=== PATIENT | male | born 1985 | race American Indian/Alaskan Native ===

== ENCOUNTER 2017-11-29 17:09 | Emergency (ER) | payer BC ==
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
[2017-11-29] MEDS ORDERED: ZITHROMAX PO ONE (21:59)
[2017-11-29] MEDS ORDERED: CATAPRES PO ONE (21:59)
[2017-11-29] MEDS ORDERED: ROCEPHIN IM ONE (21:59)
[2017-11-29] MEDS ORDERED: XYLOCAINE 1% MPF 5 mL INFILTRATI ONE (21:59)
[2017-11-29] MEDS ORDERED: FLAGYL PO ONE (21:59)
[2017-11-29 22:59] VITALS: BP 191/124
[2017-11-29] MEDS ORDERED: APRESOLINE IV ONE (23:13)
== END 2017-11-30 01:56 | disposition left against medical advice (07) ==
LOC: ED 17:09
DX: I16.9 Hypertensive crisis, unspecified (principal); I10 Essential (primary) hypertension
CPT/HCPCS: 93005; 93010; 96372; 99283; J0696

== ENCOUNTER 2019-04-08 23:57 | Emergency (ER) | payer OTHER ==
[2019-04-09 00:52] VITALS: BP 171/101
--- NOTE | 2019-04-09 00:58 | XRay Report ---
PROCEDURE: XR TOE(S) 2+V LT TECHNIQUE: First toe radiographs, including AP, oblique and lateral views. HISTORY: pain and swelling COMPARISONS: None . FINDINGS: Fracture (s) and/or Dislocation(s): None . Joint space(s): Normal . Soft tissues: There is soft tissue swelling of the first digit. . Bone mineralization: Normal . Foreign bodies: None . IMPRESSION: There is no fracture or malalignment. There is soft tissue swelling of the first digit. . This document is electronically signed by Jf Chilel MD., Apr 09 2019 12:56:15 AM ET
[2019-04-09] MEDS ORDERED: NORCO 5/325 PO ONE (05:23)
[2019-04-09] MEDS ORDERED: NORCO 5/325 ONE (05:27)
--- NOTE | 2019-04-09 05:31 | Emergency Department Report ---
ED Lower Extremity HPI - General Chief Complaint: Extremity Injury, Lower Stated Complaint: RT BIG TOE PAIN Time Seen by Provider: 04/09/19 05:00 Source: patient Mode of arrival: Ambulatory Limitations: No Limitations - History of Present Illness Initial Comments: There is 3-year-old female who presents for right ear pain status post striking toe on floor at home pt denies bleeding or open wound pain is 9/10 well as a resulclenad tomorrow MD Complaint: other (right great toe pain ) -: Sudden, This afternoon Injury: Toes: Right (right great towo general he is saying seen obstruction by granulation discharging an option and pain there was insufficient evidence of his physician is present and instruction [id number]) Place: home Severity: moderate Severity scale (0 -10): 4 Improves With: nothing Worsens With: weight bearing, palpation Associated Symptoms: snap/pop sensation, ambulatory - Related Data Previous Rx's Medication Instructions Recorded Last Taken Type Ibuprofen [Motrin 800 MG tab] 800 mg PO Q8HR PRN #30 tablet 04/09/19 Unknown Rx Allergies Allergy/AdvReac Type Severity Reaction Status Date / Time No Known Allergies Allergy Verified 11/29/17 22:17 ED Review of Systems ROS: Stated complaint: RT BIG TOE PAIN Other details as noted in HPI Constitutional: denies: chills, fever Eyes: denies: eye pain, eye discharge, vision change ENT: denies: ear pain, throat pain Respiratory: denies: cough, shortness of breath, wheezing Cardiovascular: denies: chest pain, palpitations Endocrine: no symptoms reported Gastrointestinal: denies: abdominal pain, nausea, diarrhea Genitourinary: denies: urgency, dysuria Musculoskeletal: back pain. denies: joint swelling, arthralgia, myalgia Skin: denies: rash, lesions Neurological: as per HPI Psychiatric: denies: anxiety, depression Hematological/Lymphatic: denies: easy bleeding, easy bruising ED Past Medical Hx - Social History Smoking Status: Never Smoker Substance Use Type: None - Medications Home Medications: Home Medications Medication Instructions Recorded Confirmed Last Taken Type Ibuprofen [Motrin 800 MG tab] 800 mg PO Q8HR PRN #30 tablet 04/09/19 Unknown Rx ED Physical Exam - General Limitations: No Limitations General appearance: alert, in no apparent distress - Head Head exam: Present: atraumatic, normocephalic - Eye Eye exam: Present: normal appearance - ENT ENT exam: Present: mucous membranes moist - Neck Neck exam: Present: normal inspection - Respiratory Respiratory exam: Present: normal lung sounds bilaterally. Absent: respiratory distress - Cardiovascular Cardiovascular Exam: Present: regular rate, normal rhythm. Absent: systolic murmur, diastolic murmur, rubs, gallop - GI/Abdominal GI/Abdominal exam: Present: soft, normal bowel sounds - Rectal Rectal exam: Present: deferred - exam: Present: normal inspection - Extremities Exam Extremities exam: Present: normal inspection - Back Exam Back exam: Present: normal inspection - Neurological Exam Neurological exam: Present: alert, oriented X3, CN II-XII intact, normal gait, reflexes normal - Psychiatric Psychiatric exam: Present: normal affect, normal mood - Skin Skin exam: Present: warm, dry, intact, normal color. Absent: rash ED Course Vital Signs 04/09/19 00:05 Temperature 98.0 F Pulse Rate 105 H Respiratory 20 Rate Blood Pressure 171/101 O2 Sat by Pulse 100 Oximetry ED Lower Extremity MDM - EKG Data -: EKG Interpreted by Me Critical care attestation.: If time is entered above; I have spent that time in minutes in the direct care of this critically ill patient, excluding procedure time. ED Disposition Clinical Impression: Toe sprain Qualifiers: Encounter type: initial encounter Qualified Code(s): S93.509A - Unspecified sprain of unspecified toe(s), initial encounter Disposition: TO HOME OR SELFCARE Is pt being admited?: No Does the pt Need Aspirin: No Condition: Stable Instructions: Foot Sprain (ED) Prescriptions: Ibuprofen [Motrin 800 MG tab] 800 mg PO Q8HR PRN #30 tablet PRN Reason: pain Referrals: LEONIDES ALVARADO MD [Primary Care Provider] - 3-5 Days Forms: Work/School Release Form(ED) Time of Disposition: 06:18
== END 2019-04-09 06:30 | disposition home or self-care (01) ==
LOC: ED 23:57
DX: S93.501A Unspecified sprain of right great toe, initial encounter (principal); W22.09XA Striking against other stationary object, initial encounter; Y93.89 Activity, other specified; Y92.89 Other specified places as the place of occurrence of the external cause; Y99.8 Other external cause status
CPT/HCPCS: 99283

== ENCOUNTER 2020-11-17 16:39 | Emergency (ER) | payer OTHER ==
[2020-11-17 17:11] VITALS: BP 144/97
--- NOTE | 2020-11-17 17:20 | Emergency Department Report ---
ED General Adult HPI - General Chief complaint: Extremity Injury, Lower Stated complaint: LT FOOT SWOLLEN Time Seen by Provider: 11/17/20 17:11 Source: patient Mode of arrival: Ambulatory Limitations: No Limitations - History of Present Illness Initial comments: Patient is a 34-year-old male who presents emergency room complaints of left big toe pain and swelling that began 3 days ago. He denies any fall or injury or anything hitting the toe. He states he has increased pain with movement. He denies any numbness or weakness and is ambulatory. He denies any fever, vomiting, diarrhea, chills. He states that he does drink beer and eats heavy meats. He denies any past medical history. No allergies to medications. He states he had similar symptoms in 2019 and was advised that he may possibly have gout but he never followed up after. - Related Data Previous Rx's Medication Instructions Recorded Last Taken Type Ibuprofen [Motrin 800 MG tab] 800 mg PO Q8HR PRN #30 tablet 04/09/19 Unknown Rx Colchicine 0.6 mg PO ONCE 1 Days #3 tablet 11/17/20 Unknown Rx Indomethacin 50 mg PO Q8H 7 Days #21 capsule 11/17/20 Unknown Rx Prednisone [predniSONE 10 mg 10 mg PO .TAPER #1 tab.ds.pk 11/17/20 Unknown Rx (6-Day Pack, 21 Tabs)] Allergies Allergy/AdvReac Type Severity Reaction Status Date / Time No Known Allergies Allergy Verified 11/17/20 17:08 ED Review of Systems ROS: Stated complaint: LT FOOT SWOLLEN Other details as noted in HPI Comment: All other systems reviewed and negative ED Past Medical Hx - Past Medical History Hx Hypertension: Yes - Surgical History Past Surgical History?: No - Social History Smoking Status: Never Smoker Substance Use Type: None - Medications Home Medications: Home Medications Medication Instructions Recorded Confirmed Last Taken Type Ibuprofen [Motrin 800 MG tab] 800 mg PO Q8HR PRN #30 tablet 04/09/19 Unknown Rx Colchicine 0.6 mg PO ONCE 1 Days #3 tablet 11/17/20 Unknown Rx Indomethacin 50 mg PO Q8H 7 Days #21 capsule 11/17/20 Unknown Rx Prednisone [predniSONE 10 mg 10 mg PO .TAPER #1 tab.ds.pk 11/17/20 Unknown Rx (6-Day Pack, 21 Tabs)] ED Physical Exam - General Limitations: No Limitations General appearance: alert, in no apparent distress - Head Head exam: Present: atraumatic, normocephalic - Eye Eye exam: Present: normal appearance - ENT ENT exam: Present: mucous membranes moist - Respiratory Respiratory exam: Absent: respiratory distress, accessory muscle use - Extremities Exam Extremities exam: Present: other (ttp and edema present to the left 1st toe, there is mild increased warmth, no erythema or skin changes, FROM of the LLE, no ttp or edema to the RLE, FROM of the RLE, neurovascularly intact throughout) - Neurological Exam Neurological exam: Present: alert, oriented X3 - Psychiatric Psychiatric exam: Present: normal affect, normal mood - Skin Skin exam: Present: warm, dry, intact ED Course Vital Signs 11/17/20 17:10 Temperature 98.3 F Pulse Rate 92 H Respiratory 18 Rate Blood Pressure 144/97 O2 Sat by Pulse 100 Oximetry ED Medical Decision Making - Medical Decision Making Patient is a 34-year-old male who presents emergency room complaints of left big toe pain and swelling that began 3 days ago. He denies any fall or injury or anything hitting the toe. He states he has increased pain with movement. He denies any numbness or weakness and is ambulatory. He denies any fever, vomiting, diarrhea, chills. He states that he does drink beer and eats heavy meats. He denies any past medical history. No allergies to medications. He states he had similar symptoms in 2019 and was advised that he may possibly have gout but he never followed up after. VSS. on exam: ttp and edema present to the left 1st toe, there is mild increased warmth, no erythema or skin changes, FROM of the LLE, no ttp or edema to the RLE, FROM of the RLE, neurovascularly intact throughout. Examination consistent with acute gout flare. No signs of septic joint or DVT at this time. Patient has had no traumatic injury. Patient given prescription for prednisone, indomethacin, colchicine. Advised patient Please take medication as prescribed. Follow-up with your primary care doctor. Follow-up with a auto tech. Return to emergency room for any worsening sym ptoms. Critical care attestation.: If time is entered above; I have spent that time in minutes in the direct care of this critically ill patient, excluding procedure time. ED Disposition Clinical Impression: Podagra Acute gout Qualifiers: Gout site: toe Gout etiology: unspecified cause Laterality: left Qualified Code(s): M10.9 - Gout, unspecified Disposition: TO HOME OR SELFCARE Is pt being admited?: No Does the pt Need Aspirin: No Condition: Stable Instructions: Low-Purine Eating Plan Additional Instructions: Please take medication as prescribed. Follow-up with your primary care doctor. Follow-up with a auto tech. Return to emergency room for any worsening symptoms. Prescriptions: Colchicine 0.6 mg PO ONCE 1 Days #3 tablet Indomethacin 50 mg PO Q8H 7 Days #21 capsule Prednisone [predniSONE 10 mg (6-Day Pack, 21 Tabs)] 10 mg PO .TAPER #1 tab.ds.pk Referrals: ALY DYE MD [Staff Physician] - 3-5 Days [facility] [Provider Group] - 3-5 Days WILFREDO SELLERS DPM [Staff Physician] - 3-5 Days Forms: Work/School Release Form(ED) Time of Disposition: 17:22 Print Language: MACEDONIAN
== END 2020-11-17 17:39 | disposition home or self-care (01) ==
LOC: ED 16:39
DX: M10.9 Gout, unspecified (principal); I10 Essential (primary) hypertension; Z79.1 Long term (current) use of non-steroidal anti-inflammatories (NSAID); Z79.899 Other long term (current) drug therapy
CPT/HCPCS: 99282

== ENCOUNTER 2021-04-29 02:32 | Emergency (ER) | payer OTHER ==
[2021-04-29] MEDS ORDERED: ACETAMINOPHEN 325 MG TAB ONE (05:24)
[2021-04-29] MEDS ORDERED: ACETAMINOPHEN 325 MG TAB PO ONE (05:25)
[2021-04-29] MEDS ORDERED: MORPHINE 4 MG/1 ML INJ IM STA (06:13)
[2021-04-29 06:36] VITALS: BP 180/111
--- NOTE | 2021-04-29 07:02 | Emergency Department Report ---
ED Lower Extremity HPI - General Chief Complaint: Extremity Injury, Lower Stated Complaint: LT FOOT SWELLING/PAINFUL Time Seen by Provider: 04/29/21 06:57 Source: patient Mode of arrival: Ambulatory Limitations: No Limitations - History of Present Illness Initial Comments: 35-year-old -Congol[place] male [facility] emerge department complaining of severe pain and swelling to his left foot is worse with palpation ambulation and and range of motion. States injury occurred when he was at work and he was walking down a step caused him to misstep and inverted his foot resulting in an injury. MD Complaint: foot injury -: Sudden Injury: Foot: Left Type of Injury: inversion Place: home Severity: mild, moderate Worsens With: weight bearing, movement, palpation Context: fall Associated Symptoms: swelling, unable to bear weight - Related Data Previous Rx's Medication Instructions Recorded Last Taken Type Ibuprofen [Motrin 800 MG tab] 800 mg PO Q8HR PRN #30 tablet 04/09/19 Unknown Rx Colchicine 0.6 mg PO ONCE 1 Days #3 tablet 11/17/20 Unknown Rx Indomethacin 50 mg PO Q8H 7 Days #21 capsule 11/17/20 Unknown Rx Prednisone [predniSONE 10 mg 10 mg PO .TAPER #1 tab.ds.pk 11/17/20 Unknown Rx (6-Day Pack, 21 Tabs)] Ketorolac [Toradol] 10 mg PO Q6H PRN #14 tablet 04/29/21 Unknown Rx traMADoL [Ultram] 50 mg PO Q4HR PRN #14 tablet 04/29/21 Unknown Rx Allergies Allergy/AdvReac Type Severity Reaction Status Date / Time No Known Allergies Allergy Verified 04/29/21 06:35 ED Review of Systems ROS: Stated complaint: LT FOOT SWELLING/PAINFUL Other details as noted in HPI Comment: All other systems reviewed and negative Musculoskeletal: joint swelling ED Past Medical Hx - Past Medical History Previous Medical History?: Yes Hx Hypertension: Yes - Surgical History Past Surgical History?: No - Social History Smoking Status: Never Smoker Substance Use Type: Alcohol - Medications Home Medications: Home Medications Medication Instructions Recorded Confirmed Last Taken Type Ibuprofen [Motrin 800 MG tab] 800 mg PO Q8HR PRN #30 tablet 04/09/19 Unknown Rx Colchicine 0.6 mg PO ONCE 1 Days #3 tablet 11/17/20 Unknown Rx Indomethacin 50 mg PO Q8H 7 Days #21 capsule 11/17/20 Unknown Rx Prednisone [predniSONE 10 mg 10 mg PO .TAPER #1 tab.ds.pk 11/17/20 Unknown Rx (6-Day Pack, 21 Tabs)] Ketorolac [Toradol] 10 mg PO Q6H PRN #14 tablet 04/29/21 Unknown Rx traMADoL [Ultram] 50 mg PO Q4HR PRN #14 tablet 04/29/21 Unknown Rx ED Physical Exam - General Limitations: No Limitations General appearance: alert, in no apparent distress - Head Head exam: Present: atraumatic, normocephalic - Eye Eye exam: Present: normal appearance, PERRL, EOMI Pupils: Present: normal accommodation - ENT ENT exam: Present: normal exam, normal orophraynx, mucous membranes moist - Neck Neck exam: Present: normal inspection - Respiratory Respiratory exam: Present: normal lung sounds bilaterally. Absent: respiratory distress - Cardiovascular Cardiovascular Exam: Present: regular rate, normal rhythm. Absent: systolic murmur, diastolic murmur, rubs, gallop - GI/Abdominal GI/Abdominal exam: Present: soft, normal bowel sounds - Rectal Rectal exam: Present: deferred - Extremities Exam Extremities exam: Present: normal inspection, tenderness, joint swelling - Expanded Lower Extremity Exam Left Foot/Toe exam: Present: tenderness, swelling, tenderness at base of 5th meta tarsal. Absent: erythema, amputation, puncture wound, calcaneal tenderness - Back Exam Back exam: Present: normal inspection - Neurological Exam Neurological exam: Present: alert, oriented X3, CN II-XII intact, normal gait - Psychiatric Psychiatric exam: Present: normal affect, normal mood - Skin Skin exam: Present: warm, dry, intact, normal color. Absent: rash ED Course Vital Signs 04/29/21 04/29/21 05:42 06:35 Pulse Rate 72 Respiratory 18 19 Rate Blood Pressure 180/111 [Right] O2 Sat by Pulse 98 Oximetry Critical care attestation.: If time is entered above; I have spent that time in minutes in the direct care of this critically ill patient, excluding procedure time. ED Disposition Clinical Impression: Right foot strain Disposition: DC-01 TO HOME OR SELFCARE Is pt being admited?: No Does the pt Need Aspirin: No Condition: Stable Instructions: How to Use a Stirrup Ankle Brace, [id number], Muscle Strain, [id number], Elastic Bandage and RICE Therapy Prescriptions: Ketorolac [Toradol] 10 mg PO Q6H PRN #14 tablet PRN Reason: Pain traMADoL [Ultram] 50 mg PO Q4HR PRN #14 tablet PRN Reason: Pain Referrals: PRIMARY CARE,MD [Primary Care Provider] - 3-5 Days [facility] [Provider Group] - 3-5 Days
--- NOTE | 2021-04-29 07:30 | XRay Report ---
Left foot 3 views INDICATION: Foot swelling FINDINGS: MTP joints and IP joints appear normal. Midfoot alignment appears normal. Calcaneus appears normal. IMPRESSION: No acute findings. Signer Name: Ten Pham MD Signed: 04/29/2021 7:26 AM Workstation Name: [id number]
== END 2021-04-29 08:00 | disposition home or self-care (01) ==
LOC: ED 02:32
DX: S96.912A Strain of unspecified muscle and tendon at ankle and foot level, left foot, initial encounter (principal); I10 Essential (primary) hypertension; Z79.1 Long term (current) use of non-steroidal anti-inflammatories (NSAID); Z79.899 Other long term (current) drug therapy; X58.XXXA Exposure to other specified factors, initial encounter; Y93.89 Activity, other specified; Y92.89 Other specified places as the place of occurrence of the external cause; Y99.8 Other external cause status
CPT/HCPCS: 73630; 96372; 99284; J2270